=== PATIENT | female | born 1975 | race African-American/Black ===

== ENCOUNTER 2022-02-16 10:49 | Emergency (ER) | payer MEDICAID ==
[~2022-02-16] VITALS: Ht 177.8 cm; Wt 78.0 kg
[2022-02-16 11:13] VITALS: BP 182/105
[2022-02-16 11:34] LABS: BASOPHILS % 0.7 % (0.0-2.0); EOSINOPHILS % 1.4 % (0.0-5.0); HEMOGLOBIN. 11.3 g/dL (12.0-16.0); LYMPHOCYTES % 47.6 % (20.0-50.0); MEAN CORPUSCULAR HEMOGLOBIN 29.6 pg (28.0-32.0); MEAN CORPUSCULAR VOLUME 89.1 fL (81.0-99.0); MEAN PLATELET VOLUME 7.7 fl (7.4-10.4); MONOCYTES % 8.1 % (2.0-8.0); NEUTROPHILS % 42.2 % (40.0-76.0); PLATELET 345 x1000/uL (130-400); RED BLOOD CELL COUNT 3.82 mill/uL (4.2-5.4); RED CELL DISTRIBUTION WIDTH 15.2 % (11.6-14.6)
[2022-02-16 11:44] LABS: CHLORIDE 108 mEq/L (98-107)
[2022-02-16 11:45] LABS: INR 3.7; PROTHROMBIN TIME 35.6 sec (9.6-11.0)
[2022-02-16 12:06] LABS: HCG SCREEN NEGATIVE
[2022-02-16 12:31] LABS: CLARITY URINE CLEAR (CLEAR); COLOR URINE YELLOW (YELLOW); KETONES URINE NEGATIVE (NEGATIVE); LEUKOCYTE ESTERASE URINE NEGATIVE (NEGATIVE); NITRITE URINE NEGATIVE (NEGATIVE); OCCULT BLOOD URINE 1+ (NEGATIVE); PROTEIN URINE NEGATIVE (NEGATIVE); SPECIFIC GRAVITY URINE 1.013 (1.005-1.030); UROBILINOGEN URINE 0.2 E.U./dL (0.2-1.0)
[2022-02-16] MEDS ORDERED: TOPUD PO (13:39)
== END 2022-02-16 14:25 | disposition home or self-care (01) ==
LOC: ER 11:08
DX: M54.59 Other low back pain (principal); R79.1 Abnormal coagulation profile; I10 Essential (primary) hypertension; Z79.01 Long term (current) use of anticoagulants; Z87.828 Personal history of other (healed) physical injury and trauma
CPT/HCPCS: 36415; 74176; 80053; 81003; 84703; 85025; 99284

== ENCOUNTER → 2022-04-05 | Outpatient (CLI) | payer MEDICAID ==
[~2022-04-05] MED LIST: IOHEXOL-300 100 ML BOTTLE ONE; TOPUD PO
== END | disposition home or self-care (01) ==
LOC: CT 08:42
DX: R97.0 Elevated carcinoembryonic antigen [CEA] (principal); J98.11 Atelectasis; Z90.49 Acquired absence of other specified parts of digestive tract
CPT/HCPCS: 71270; 74178; Q9967; Z7610

== ENCOUNTER 2022-08-01 12:19 | Inpatient (IN) | payer MEDICAID ==
[~2022-08-01] VITALS: Ht 170.2 cm; Wt 107.5 kg
[~2022-08-01 12:19] MED LIST changes: -IOHEXOL-300 100 ML BOTTLE ONE
[2022-08-01] MEDS ORDERED: MECLIZINE 25MG TABLET PO ONE (16:15)
[2022-08-01 16:27] LABS: HEMOGLOBIN. 12.7 g/dL (12.0-16.0); MEAN CORPUSCULAR HEMOGLOBIN 29.2 pg (28.0-32.0); MEAN CORPUSCULAR VOLUME 89.7 fL (81.0-99.0); MEAN PLATELET VOLUME 8.5 fl (7.4-10.4); PLATELET 316 x1000/uL (130-400); RED BLOOD CELL COUNT 4.35 mill/uL (4.2-5.4); RED CELL DISTRIBUTION WIDTH 20.9 % (11.6-14.6)
[2022-08-01 16:33] LABS: CHLORIDE 100 mEq/L (98-107)
[2022-08-01 16:57] LABS: PLATELET ESTIMATE NORMAL
[2022-08-01 17:06] LABS: CLARITY URINE CLEAR (CLEAR); COLOR URINE YELLOW (YELLOW); KETONES URINE TRACE (NEGATIVE); LEUKOCYTE ESTERASE URINE NEGATIVE (NEGATIVE); NITRITE URINE NEGATIVE (NEGATIVE); OCCULT BLOOD URINE 2+ (NEGATIVE); PH URINE 7.5 (4.5-8.0); PROTEIN URINE NEGATIVE (NEGATIVE); UROBILINOGEN URINE 0.2 E.U./dL (0.2-1.0)
[2022-08-01] MEDS ORDERED: POTASSIUM CHLORIDE 20MEQ/PACKET PO NR (17:30)
[2022-08-01] MEDS ORDERED: IOHEXOL-300 100 ML BOTTLE ONE (19:26)
[2022-08-01] MEDS ORDERED: GUAIFENESIN 200MG/10ML SUGAR FREE UDC PO PRN (23:00)
[2022-08-01] MEDS ORDERED: CLONIDINE 0.1MG TABLET PO PRN (23:00)
[2022-08-01] MEDS ORDERED: ACETAMINOPHEN 325MG TABLET PO PRN ×2 (23:00)
[2022-08-01] MEDS ORDERED: DIPHENHYDRAMINE 50MG/ML VIAL IV PRN (23:00)
[2022-08-01] MEDS ORDERED: PIPERACILLIN/TAZOBACTAM 3.375 G in DEXTROSE 5% WATER 50 ML IV SCH (23:00)
[2022-08-01] MEDS ORDERED: DOCUSATE SODIUM 100MG CAPSULE PO PRN (23:00)
[2022-08-01] MEDS ORDERED: MAGNESIUM/ALUMINUM HYDROXIDE/SIMETHICONE 30ML UDC PO PRN (23:00)
[2022-08-01] MEDS ORDERED: IPRATROPIUM/ALBUTEROL 0.5-3(2.5)MG/3ML NEB HHN PRN (23:00)
[2022-08-01] MEDS ORDERED: ONDANSETRON HCL 4MG/2ML INJ IV PRN (23:00)
[2022-08-01] MEDS ORDERED: PIPERACILLIN/TAZ 3.375G PREMIX 50 ML IV NR (23:15)
[2022-08-02] MEDS: AMLODIPINE 10MG TABLET PO SCH ×2 (01:15→01:31)
[2022-08-02] MEDS ORDERED: VANCOMYCIN 2,000 MG in DEXT 5% WATER 500 ML IV NR (02:00)
[2022-08-02 04:43] LABS: HEMATOCRIT. 33.5 % (36.0-48.0); HEMOGLOBIN. 10.8 g/dL (12.0-16.0); MEAN CORPUSCULAR HEMOGLOBIN 28.8 pg (28.0-32.0); MEAN CORPUSCULAR VOLUME 88.9 fL (81.0-99.0); MEAN PLATELET VOLUME 8.6 fl (7.4-10.4); PLATELET 275 x1000/uL (130-400); RED BLOOD CELL COUNT 3.76 mill/uL (4.2-5.4); RED CELL DISTRIBUTION WIDTH 20.4 % (11.6-14.6)
[2022-08-02 04:50] LABS: CHLORIDE 105 mEq/L (98-107)
[2022-08-02 05:12] LABS: CREATINE KINASE 145 IU/L (26-192); CREATINE KINASE MB FRACTION 1.3 ng/mL (0.5-3.6); HDL CHOLESTEROL 64 mg/dL (40-59); LDL CHOLESTEROL 111 mg/dL (5-100)
[2022-08-02] MEDS ORDERED: PIPERACILLIN/TAZOBACTAM 3.375G in DEXT 5% WATER 50ML IV SCH (06:00)
[2022-08-02 08:53] LABS: BG BASE EXCESS 0.9 mmol/L (-2.0-2.0); BG CARBOXYHEMOGLOBIN 0.3 % (0.5-1.5); BG DEOXYHEMOGLOBIN 3.5 % (0.0-5.0); BG FRACTION INSPIRED OXYGEN 21; BG HCO3 ACT 24.9 mmol/L (22.0-26.0); BG OXYGEN SATURATION 96.5 % (92.0-98.5); BG OXYHEMOGLOBIN 96.2 % (94.0-97.0); BG PCO2 37.8 mmHg (35.0-45.0); BG PH 7.437 (7.350-7.450); BG PO2 84.5 mmHg (75.0-100.0); BG SAMPLE SITE RIGHT RADIAL; BG TOTAL HEMOGLOBIN 12.5 g/dL (12.0-18.0); BG VENT MODE ROOM AIR
[2022-08-02] MEDS: ENOXAPARIN 30MG/0.3ML SYR SUBCUT SCH ×2 (09:00→21:11)
[2022-08-02] MEDS ORDERED: ALBUTEROL (0.083%) 2.5MG/3ML NEB HHN PRN (10:45)
[2022-08-02] MEDS ORDERED: IPRATROPIUM BROMIDE (0.02%) 0.5MG/2.5ML NEB HHN PRN (10:45)
[2022-08-02] MEDS: ASPIRIN 81MG EC TABLET PO SCH (11:10)
[2022-08-02 11:41] VITALS: BP 137/88
[2022-08-02 12:00] VITALS: BP 137/88
[2022-08-02] MEDS: SODIUM CHLORIDE 0.9% 1,000 ML IV SCH ×2 (12:00→21:12)
[2022-08-02] MEDS ORDERED: LOSA25TA26 MT (12:04)
[2022-08-02] MEDS ORDERED: INDA1.255 PO (12:04)
[2022-08-02] MEDS ORDERED: WARF7.5T48 MT (12:04)
[2022-08-02] MEDS ORDERED: FERR325T6 MT (12:04)
[2022-08-02] MEDS: PIPERACILLIN/TAZOBACTAM 3.375G in DEXT 5% WATER 50ML IV SCH ×2 (13:37→21:11)
[2022-08-02] MEDS: VANCOMYCIN 1G PREMIX 200 ML IV SCH (13:38)
[2022-08-02 13:57] LABS: PLATELET ESTIMATE NORMAL
[2022-08-02] MEDS ORDERED: VANCOMYCIN 1G PREMIX 200 ML IV SCH (14:00)
[2022-08-02 16:00] VITALS: BP 117/70
[2022-08-02 16:33] LABS: CREATINE KINASE 129 IU/L (26-192); CREATINE KINASE MB FRACTION < 1.0 ng/mL (0.5-3.6)
[2022-08-02 20:00] VITALS: BP 109/59
[2022-08-02] MEDS ORDERED: FAMOTIDINE 20MG TABLET PO SCH (21:00)
[2022-08-03] VITALS: BP 99/54
[2022-08-03] MEDS: VANCOMYCIN 1G PREMIX 200 ML IV SCH ×2 (01:40→14:00)
[2022-08-03 04:00] VITALS: BP 96/49
[2022-08-03] MEDS: PIPERACILLIN/TAZOBACTAM 3.375G in DEXT 5% WATER 50ML IV SCH ×2 (06:04→14:00)
[2022-08-03 06:31] LABS: CHLORIDE 109 mEq/L (98-107)
[2022-08-03 06:46] LABS: BASOPHILS % 0.3 % (0.0-2.0); EOSINOPHILS % 0.4 % (0.0-5.0); HEMOGLOBIN. 10.7 g/dL (12.0-16.0); LYMPHOCYTES % 17.1 % (20.0-50.0); MEAN CORPUSCULAR HEMOGLOBIN 29.4 pg (28.0-32.0); MEAN CORPUSCULAR VOLUME 88.5 fL (81.0-99.0); MEAN PLATELET VOLUME 8.5 fl (7.4-10.4); MONOCYTES % 3.7 % (2.0-8.0); NEUTROPHILS % 78.5 % (40.0-76.0); PLATELET 258 x1000/uL (130-400); RED BLOOD CELL COUNT 3.62 mill/uL (4.2-5.4); RED CELL DISTRIBUTION WIDTH 20.9 % (11.6-14.6)
[2022-08-03 08:00] VITALS: BP 134/89
[2022-08-03] MEDS: SODIUM CHLORIDE 0.9% 1,000 ML IV SCH (08:00)
[2022-08-03] MEDS: ASPIRIN 81MG EC TABLET PO SCH (08:35)
[2022-08-03] MEDS: ENOXAPARIN 30MG/0.3ML SYR SUBCUT SCH (08:36)
[2022-08-03 12:00] VITALS: BP 136/81
[2022-08-03] MEDS ORDERED: LEVO-65 MT (13:13)
[2022-08-03 13:28] VITALS: BP 136/81
[2022-08-03] MEDS ORDERED: INDAPAMIDE 1.25MG TABLET PO SCH (16:00)
== END 2022-08-03 14:00 | disposition home or self-care (01) | DRG 720 ==
LOC: ER 12:19 → MICUSO 22:29 → 6EST 08-02 00:19 → MICUSO 08-02 01:54 → 8WST 08-02 10:34
PROVIDERS: ADMIT Internal Medicine Nephrology; ATTEND Internal Medicine Nephrology
DX: A41.9 Sepsis, unspecified organism (principal); E66.9 Obesity, unspecified; E78.00 Pure hypercholesterolemia, unspecified; E86.9 Volume depletion, unspecified; I10 Essential (primary) hypertension; Z20.822 Contact with and (suspected) exposure to COVID-19; N39.0 Urinary tract infection, site not specified; E87.6 Hypokalemia; Z68.34 Body mass index [BMI] 34.0-34.9, adult; Z86.718 Personal history of other venous thrombosis and embolism
CPT/HCPCS: 36415; 36600; 70496; 70498; 70551; 71045; 80048; 80053; 80061; 81003; 82375; 82550; 82553; 82805; 82962; 83036; 83605; 83735; 83880; 84145; 84439; 84443; 84484; 85025; 87426; 93005; 93306; 93970; 99285; J1650; J2543; J3370; J7030; J7060; J8597; Q9967

== ENCOUNTER 2022-12-17 17:42 | Emergency (ER) | payer MEDICAID ==
[~2022-12-17] VITALS: Ht 170.2 cm; Wt 105.0 kg
[~2022-12-17 17:42] MED LIST changes: +FERR325T6 MT; +INDA1.255 PO; +LEVO-65 MT; +WARF7.5T48 MT
[2022-12-17 18:14] VITALS: BP 169/91
[2022-12-17] MEDS ORDERED: GUAIFENESIN 600MG ER TABLET PO ONE (22:45)
[2022-12-17] MEDS ORDERED: ACETAMINOPHEN 325MG TABLET PO ONE (22:45)
[2022-12-17] MEDS ORDERED: ACET-2708 MT (23:14)
[2022-12-17] MEDS ORDERED: GUAI600T26 MT (23:14)
[2022-12-17] MEDS ORDERED: AMOX-494 MT (23:14)
[2022-12-18 00:51] VITALS: PULSE 73; RESP 16; TEMP 98.3
== END 2022-12-18 00:55 | disposition home or self-care (01) ==
LOC: ER 17:54
DX: H66.92 Otitis media, unspecified, left ear (principal); I10 Essential (primary) hypertension; E78.00 Pure hypercholesterolemia, unspecified; Z98.890 Other specified postprocedural states; Z79.899 Other long term (current) drug therapy
CPT/HCPCS: 99283

== ENCOUNTER 2023-03-01 20:29 | Emergency (ER) | payer MEDICAID ==
[~2023-03-01] VITALS: Ht 170.2 cm; Wt 103.0 kg
[~2023-03-01 20:29] MED LIST changes: +ACET-2708 MT; +AMOX-494 MT; +GUAI600T26 MT
[2023-03-01 20:48] VITALS: TEMP 98; O2SAT 98
[2023-03-01] MEDS ORDERED: KETOROLAC 60MG/2ML VIAL IM ONE (21:15)
[2023-03-01] MEDS ORDERED: NAPR-681 MT (23:53)
[2023-03-02] MEDS ORDERED: KETOROLAC 60MG/2ML VIAL IM NR (01:45)
[2023-03-02 02:20] VITALS: BP 168/103; PULSE 62; RESP 20
== END 2023-03-02 02:21 | disposition home or self-care (01) ==
LOC: ER 20:29
DX: M17.9 Osteoarthritis of knee, unspecified (principal); I10 Essential (primary) hypertension; E78.00 Pure hypercholesterolemia, unspecified
CPT/HCPCS: 99284; 81025; 73562; 96372 ×2; J1885

== ENCOUNTER 2023-03-17 17:17 | Emergency (ER) | payer MEDICAID ==
[~2023-03-17] VITALS: Ht 170.2 cm; Wt 105.0 kg
[~2023-03-17 17:17] MED LIST changes: +NAPR-681 MT
[2023-03-17 17:35] VITALS: TEMP 98.7; O2SAT 99
[2023-03-17 18:45] VITALS: BP 153/87; PULSE 61; RESP 19
[2023-03-17] MEDS ORDERED: KETOROLAC 30MG/ML VIAL IM ONE (18:45)
[2023-03-17] MEDS ORDERED: NAPR-681 MT (19:31)
== END 2023-03-17 20:25 | disposition home or self-care (01) ==
LOC: ER 17:17
DX: G89.29 Other chronic pain (principal); M25.562 Pain in left knee; E78.00 Pure hypercholesterolemia, unspecified; I10 Essential (primary) hypertension; Z90.49 Acquired absence of other specified parts of digestive tract; Z79.899 Other long term (current) drug therapy
CPT/HCPCS: 99283; 96372; L1830; J1885